=== PATIENT | female | born 2000 | race Two or more races ===

== ENCOUNTER 2020-05-12 23:58 | Inpatient (IN) | payer OTHER ==
[~2020-05-12] VITALS: Ht 157.5 cm; Wt 58.8 kg
[2020-05-13] MEDS ORDERED: IV NORMAL SALINE 1000ML BAG 1,000 ML IV ONE ×2 (00:30→02:00)
[2020-05-13] MEDS ORDERED: METOCLOPRAMIDE HCL 10 MG/2 ML VIAL. IVP ONE (00:30)
[2020-05-13] MEDS ORDERED: KETOROLAC 15 MG/ML VIAL. IVP ONE (00:30)
[2020-05-13 00:35] LABS: BILIRUBIN,URINE NEGATIVE (NEG); CLARITY,URINE CLEAR; COLOR,URINE YELLOW; NITRITE,URINE NEGATIVE (NEG); PROTEIN,URINE NEGATIVE (NEG-TRACE)
[2020-05-13 00:43] LABS: BACTERIA,URINE FEW /HPF (0-FEW); SQUAMOUS EPITHELIAL CELL,UR FEW /LPF
[2020-05-13 00:43] LABS: BASO % 0 % (0-3); EOS % 0 % (0-3); HEMATOCRIT 38.8 % (36.0-47.0); HEMOGLOBIN 13.5 g/dL (12.0-15.5); LYMPH # 1.8 x10^3/uL (1.0-4.8); LYMPH % 11 % (24-48); MEAN CORPUSCULAR HEMOGLOBIN 31 pg (25-35); MEAN CORPUSCULAR HGB CONC 35 g/dL (31-37); MEAN CORPUSCULAR VOLUME 89 fL (79-100); MONO % 6 % (0-9); NEUT # 13.2 x10^3/uL (1.8-7.7); NEUT % 82 % (31-73); PLATELET COUNT 216 x10^3/uL (140-400); RED BLOOD COUNT 4.39 x10^6/uL (3.50-5.40)
[2020-05-13 00:51] LABS: CALCIUM 8.6 mg/dL (8.5-10.1); CREATININE 0.8 mg/dL (0.6-1.0); GFR 92.4; POTASSIUM 3.4 mmol/L (3.5-5.1)
[2020-05-13 00:57] LABS: ALBUMIN 3.8 g/dL (3.4-5.0); MAGNESIUM 1.8 mg/dL (1.8-2.4); TOTAL BILIRUBIN 0.9 mg/dL (0.2-1.0); TOTAL PROTEIN 7.6 g/dL (6.4-8.2)
--- NOTE | 2020-05-13 01:22 | RAD ---
EXAM: CT Abdomen and Pelvis without IV contrast INDICATION: Reason: right flank pain, eval for ureteral calculi / Spl. Instructions: / History: TECHNIQUE: Multi-detector row CT images were acquired from the lung bases through the abdomen and pelvis without the use of IV contrast. Sagittal and coronal images were acquired from the transaxial data. All CT scans performed at this facility utilize dose optimization techniques as appropriate to the exam, including the following: Automated exposure control and adjustment of the mA and/or KV according to patient size (this includes techniques or standardized protocols for targeted exams where dose is indication/reason for exam). ORAL CONTRAST: None COMPARISON: None FINDINGS: The absence of IV contrast limits evaluation of soft tissue pathology. LOWER CHEST: Unremarkable LIVER: Unremarkable BILIARY SYSTEM: Gallbladder is unremarkable. Bile ducts are not dilated. PANCREAS: Unremarkable SPLEEN: Unremarkable ADRENALS: Unremarkable KIDNEYS & URETERS: Unremarkable BLADDER: Unremarkable REPRODUCTIVE ORGANS: Unremarkable GASTROINTESTINAL: The stomach, small bowel, and colon are unremarkable. The appendix is not well seen and there is soft tissue stranding and fluid-like density at the cecal base, some of which appears to track up the right gonadal vein. MESENTERY/PERITONEUM/RETROPERITONEUM: Unremarkable VASCULAR: Unremarkable LYMPH NODES: No adenopathy OSSEOUS & SOFT TISSUES: Unremarkable IMPRESSION: Right lower quadrant abdominal fluid and stranding in the expected location of the appendix, with poorly visualized appendix. Findings could reflect acute appendicitis in the appropriate clinical context. Differential diagnosis includes a ruptured ovarian cyst, terminal ileitis, or typhlitis. Correlate clinically. Discussed with Dr. Dobbins by telephone at 1:17 am on 05/13/20 Electronically signed by: Jennifer Veras MD (05/13/2020 1:19 AM) [facility] [place]
[2020-05-13 01:26] LABS: % BANDS 1 % (0-9); % LYMPHS 11 % (24-48); % MONOS 5 % (0-10); % SEGS 83 % (35-66); PLT ESTIMATE ADEQUATE (ADEQUATE)
[2020-05-13] MEDS ORDERED: PIPERACILLIN/TAZOBACTAM 3.375 GM in IV NORMAL SALINE 50ML 50 ML IV ONE (02:00)
[2020-05-13] MEDS ORDERED: ONDANSETRON PF 4 MG/2 ML VIAL. IV PRN (03:15)
--- NOTE | 2020-05-13 03:25 | PHYS DOC ---
Past Medical History Past Medical History: No Pertinent History Past Surgical History: Other Additional Past Surgical Histo: CYST REMOVED FROM LEFT EAR Smoking Status: Never Smoker Alcohol Use: None Drug Use: None General Adult EDM: Chief Complaint: ABDOMINAL PAIN HPI: HPI: Patient is a 19 year old female presents with sudden right lower quadrant abdominal pain with associated nausea and vomiting that started upon waking at 0400 yesterday morning (05/12/20). Denies known sick contacts. Denies trauma. Denies fever or chills. Reports some radiation to her right flank. Reports pain worse while driving over bumps on the way to the hospital today. Reports has not been able to eat due to the pain and nausea. Denies vaginal bleeding or discharge. Denies . Review of Systems: Review of Systems: Constitutional: Denies fever or chills; reports malaise Eyes: Denies redness or eye pain HENT: Denies nasal congestion or sore throat Respiratory: Denies cough or shortness of breath Cardiovascular: Denies chest pain or palpitations GI: Reports right lower quadrant abdominal pain, nausea, and vomiting : Denies dysuria; reports hematuria Musculoskeletal: Reports right back pain; denies joint pain Integument: Denies rash or skin lesions Neurologic: Denies headache, focal weakness or sensory changes Complete systems were reviewed and found to be within normal limits, except as documented in this note. Current Medications: Current Medications Medications (Trade) Dose Ordered Sig/[facility] Start Time Stop Time Status Last Admin Dose Admin Ketorolac Tromethamine (Toradol 15mg Vial) 15 mg 1X ONCE 05/13/20 00:30 05/13/20 00:31 DC 05/13/20 00:49 15 MG Metoclopramide HCl (Reglan Vial) 10 mg 1X ONCE 05/13/20 00:30 05/13/20 00:31 DC 05/13/20 00:49 10 MG Piperacillin Sod/ Tazobactam Sod 3.375 gm/Sodium Chloride 50 ml @ 100 mls/hr 1X ONCE 05/13/20 02:00 05/13/20 02:29 DC 05/13/20 02:33 100 MLS/HR Sodium Chloride 1,000 ml @ 1,000 mls/hr 1X ONCE 05/13/20 02:00 05/13/20 02:59 DC Allergies: Allergies: Allergies Coded Allergies Type Severity Reaction Last Updated Verified No Known Drug Allergies 05/13/20 No Physical Exam: PE: Constitutional: Well developed, well nourished, no acute distress, non-toxic appearance HENT: Normocephalic, atraumatic Eyes: Conjunctiva normal, no discharge Neck: Normal range of motion, no tenderness, supple Lungs & Thorax: No respiratory distress, equal chest rise and fall Abdomen: Soft, right lower quadrant tenderness, mild guarding, no rebound tenderness/distention, no psoas sign Skin: Warm, dry, no erythema, no rash Back: No tenderness, right CVA tenderness Extremities: No tenderness, ROM intact, no edema Neurologic: Alert and oriented X 3, no focal deficits noted Psychologic: Affect normal, judgment normal Current Patient Data: Labs: Laboratory Tests Test 05/13/20 00:20 05/13/20 00:30 05/13/20 00:34 Urine Collection Type Unknown Urine Color Yellow Urine Clarity Clear Urine pH 7.0 (<5.0-8.0) Urine Specific [place] 1.020 (1.000-1.030) Urine Protein Negative mg/dL (NEG-TRACE) Urine Glucose (UA) Negative mg/dL (NEG) Urine Ketones (Stick) >=80 mg/dL (NEG) Urine Blood Moderate (NEG) Urine Nitrite Negative (NEG) Urine Bilirubin Negative (NEG) Urine Urobilinogen Dipstick 2.0 mg/dL (0.2 mg/dL) Urine Leukocyte Esterase Negative (NEG) Urine RBC 3-5 /HPF (0-2) Urine WBC 1-4 /HPF (0-4) Urine Squamous Epithelial Cells Few /LPF Urine Bacteria Few /HPF (0-FEW) Urine Mucus Mod /LPF POC Urine HCG, Qualitative Hcg negative (Negative) White Blood Count 16.0 x10^3/uL (4.0-11.0) H Red Blood Count 4.39 x10^6/uL (3.50-5.40) Hemoglobin 13.5 g/dL (12.0-15.5) Hematocrit 38.8 % (36.0-47.0) Mean Corpuscular Volume 89 fL (79-100) Mean Corpuscular Hemoglobin 31 pg (25-35) Mean Corpuscular Hemoglobin Concent 35 g/dL (31-37) Red Cell Distribution Width 13.0 % (11.5-14.5) Platelet Count 216 x10^3/uL (140-400) Neutrophils (%) (Auto) 82 % (31-73) H Lymphocytes (%) (Auto) 11 % (24-48) L Monocytes (%) (Auto) 6 % (0-9) Eosinophils (%) (Auto) 0 % (0-3) Basophils (%) (Auto) 0 % (0-3) Neutrophils # (Auto) 13.2 x10^3/uL (1.8-7.7) H Lymphocytes # (Auto) 1.8 x10^3/uL (1.0-4.8) Monocytes # (Auto) 1.0 x10^3/uL (0.0-1.1) Eosinophils # (Auto) 0.0 x10^3/uL (0.0-0.7) Basophils # (Auto) 0.0 x10^3/uL (0.0-0.2) Segmented Neutrophils % 83 % (35-66) H Band Neutrophils % 1 % (0-9) Lymphocytes % 11 % (24-48) L Monocytes % 5 % (0-10) Platelet Estimate Adequate (ADEQUATE) Sodium Level 136 mmol/L (136-145) Potassium Level 3.4 mmol/L (3.5-5.1) L Chloride Level 100 mmol/L (98-107) Carbon Dioxide Level 25 mmol/L (21-32) Anion Gap 11 (6-14) Blood Urea Nitrogen 9 mg/dL (7-20) Creatinine 0.8 mg/dL (0.6-1.0) Estimated GFR (Cockcroft-Gault) 92.4 BUN/Creatinine Ratio 11 (6-20) Glucose Level 107 mg/dL (70-99) H Lactic Acid Level 0.9 mmol/L (0.4-2.0) Calcium Level 8.6 mg/dL (8.5-10.1) Magnesium Level 1.8 mg/dL (1.8-2.4) Total Bilirubin 0.9 mg/dL (0.2-1.0) Aspartate Amino Transferase (AST) 11 U/L (15-37) L Alanine Aminotransferase (ALT) 18 U/L (14-59) Alkaline Phosphatase 92 U/L (46-116) Total Protein 7.6 g/dL (6.4-8.2) Albumin 3.8 g/dL (3.4-5.0) Albumin/Globulin Ratio 1.0 (1.0-1.7) Lipase 41 U/L (73-393) L Laboratory Tests 05/13/20 00:34 Laboratory Tests 05/13/20 00:34 Vital Signs: Vital Signs Date Time Temp Pulse Resp B/P (MAP) Pulse Ox O2 Delivery O2 Flow Rate FiO2 05/13/20 00:09 98.6 109 20 111/67 (82) 97 Room Air 98.6 EKG: EKG: [] Radiology/Procedures: Radiology/Procedures: PROCEDURE: CT ABDOMEN PELVIS WO CONTRAST EXAM: CT Abdomen and Pelvis without IV contrast INDICATION: Reason: right flank pain, eval for ureteral calculi / Spl. Instructions: / History: TECHNIQUE: Multi-detector row CT images were acquired from the lung bases through the abdomen and pelvis without the use of IV contrast. Sagittal and coronal images were acquired from the transaxial data. All CT scans performed at this facility utilize dose optimization techniques as appropriate to the exam, including the following: Automated exposure control and adjustment of the mA and/or KV according to patient size (this includes techniques or standardized protocols for targeted exams where dose is indication/reason for exam). ORAL CONTRAST: None COMPARISON: None FINDINGS: The absence of IV contrast limits evaluation of soft tissue pathology. LOWER CHEST: Unremarkable LIVER: Unremarkable BILIARY SYSTEM: Gallbladder is unremarkable. Bile ducts are not dilated. PANCREAS: Unremarkable SPLEEN: Unremarkable ADRENALS: Unremarkable KIDNEYS & URETERS: Unremarkable BLADDER: Unremarkable REPRODUCTIVE ORGANS: Unremarkable GASTROINTESTINAL: The stomach, small bowel, and colon are unremarkable. The appendix is not well seen and there is soft tissue stranding and fluid-like density at the cecal base, some of which appears to track up the right gonadal vein. MESENTERY/PERITONEUM/RETROPERITONEUM: Unremarkable VASCULAR: Unremarkable LYMPH NODES: No adenopathy OSSEOUS & SOFT TISSUES: Unremarkable IMPRESSION: Right lower quadrant abdominal fluid and stranding in the expected location of the appendix, with poorly visualized appendix. Findings could reflect acute appendicitis in the appropriate clinical context. Differential diagnosis includes a ruptured ovarian cyst, terminal ileitis, or typhlitis. Correlate clinically. Discussed with Dr. Faustin by telephone at 1:17 am on 05/13/20 Electronically signed by: Jennifer Veras MD (05/13/2020 1:19 AM) [facility] [place] PROCEDURE: PELVIS COMPLETE Pelvic ultrasound INDICATION: RLQ pain . Reported negative HCG. LMP 05/04/20 TECHNIQUE: Endovaginal pelvic ultrasound performed with grayscale, color and spectral doppler ultrasound. FINDINGS: Uterus measures 6.6 x 3.9 x 3.2 cm Endometrium measures 5 mm Right ovary measures 3.0 x 1.9 x 1.8 cm and shows normal blood flow Left ovary measures 2.3 x 2.0 x 1.9 cm and shows normal blood flow. Small amount of free fluid. Tubular structure arising from cecum measures 1.4 cm and could reflect a thickened appendix. IMPRESSION: No ovarian torsion. Possible appendicitis. Electronically signed by: Jennifer Veras MD (05/13/2020 3:33 AM) [facility] [place] Course & Med Decision Making: Course & Med Decision Making Pertinent Labs and Imaging studies reviewed. (See chart for details) Patient presents with right lower quadrant abdominal pain with radiation to back and associated nausea and vomiting. Afebrile. Denies vaginal bleeding or discharge. Denies rash. Reports some hematuria. Concern for possible ureteral calculi. Symptomatic treatment provided. IV fluid hydration provided. Labs obtained and posted to chart. WBC elevated. Lactic acid within normal limits. CT abdomen/pelvis with concern for possible appendicitis. Cannot fully exclude ovarian issue. Pelvic ultrasound without acute process. Empiric antibiotic initiated. Rapid COVID test pending. Patient requiring admission for further evaluation and treatment. Discussed with Dr. Gutierrez (General Surgery) who is in agreement with admission. Discussed findings and plan with patient and family, who acknowledge understanding and agreement. Eagle Disclaimer: Eagle Disclaimer: This electronic medical record was generated, in whole or in part, using a voice recognition dictation system. Departure Departure Impression: Primary Impression: Acute appendicitis Qualified Codes: K35.80 - Unspecified acute appendicitis Disposition: ADMITTED INPATIENT (Dr. Gutierrez (general surgery)) Condition: STABLE Referrals: NO PCP (PCP) Justicifation of Admission Dx: Justifications for Admission: Justification of Admission Dx: Yes Comments: Acute appendicitis Critical Care Time Critical care time was 30 minutes which includes time at bedside, spent in discussion of patient's care with specialists and/or family members, with interpretation of laboratory and/or radiological studies and is exclusive of procedures. SAMANTHA FAUSTIN DO May 13, 2020 03:25
--- NOTE | 2020-05-13 03:35 | RAD ---
Pelvic ultrasound INDICATION: RLQ pain . Reported negative HCG. LMP 05/04/20 TECHNIQUE: Endovaginal pelvic ultrasound performed with grayscale, color and spectral doppler ultrasound. FINDINGS: Uterus measures 6.6 x 3.9 x 3.2 cm Endometrium measures 5 mm Right ovary measures 3.0 x 1.9 x 1.8 cm and shows normal blood flow Left ovary measures 2.3 x 2.0 x 1.9 cm and shows normal blood flow. Small amount of free fluid. Tubular structure arising from cecum measures 1.4 cm and could reflect a thickened appendix. IMPRESSION: No ovarian torsion. Possible appendicitis. Electronically signed by: Jennifer Veras MD (05/13/2020 3:33 AM) [facility] [place]
[2020-05-13] MEDS ORDERED: PIP/TAZO PER PHARMACY MC PRN (04:00)
[2020-05-13 04:10] VITALS: BP 122/57
--- NOTE | 2020-05-13 04:10 | NUR ---
Patient arrived on unit at 0410 by wheelchair from ER. Patient is alert and oriented, on room air and walks ad dar. Pt. does not complain of any pain or nausea at this time. Will continue to monitor.
[2020-05-13] MEDS: IV NORMAL SALINE 1000ML BAG 1,000 ML IV SCH ×3 (04:18→18:28)
[2020-05-13] MEDS: PIPERACILLIN/TAZOBACTAM 3.375 GM in IV NORMAL SALINE 50ML 50 ML IV SCH ×3 (06:17→18:28)
[2020-05-13 07:37] VITALS: BP 101/55
[2020-05-13] MEDS ORDERED: IV RINGERS,LACTATED 1000ML 1,000 ML IV SCH (10:05)
[2020-05-13] MEDS ORDERED: PROCHLORPERAZINE 10 MG/2 ML VIAL. IV PRN (10:15)
[2020-05-13 11:02] VITALS: BP 115/62
--- NOTE | 2020-05-13 11:12 | NUR ---
SW following. Discussed with RN, pt from home, scheduled for surgery today. Med Assist following for self pay status. RN advised no SW needs at this time. SW will continue to follow, should any discharge needs arise.
--- NOTE | 2020-05-13 11:38 | PDOC1 ---
CLAUDIA GUEVARA CONDUCTOR/ENGINEER 05/13/20 1138: History and Physical Date of Admission Date of Admission DATE: 05/13/20 TIME: 11:34 / Date of service/dictation -05/13/20-1135 Identification/Chief Complaint Chief Complaint abdominal pain Source Source: Chart review, Patient History of Present Illness History of Present Illness Started having pain to lower abdomen wed evening after going to gym. Thought was cramps, however pain continued to be increasingly worse yesterday, did not improve. Associated nausea, pressure feeling in bladder. No similar symptoms in past Past Medical History Past Medical History no pertinent hx Past Surgical History Past Surgical History: No pertinent history Family History Family History: Other (noncontributory to current illness ) Social History Smoke: No ALCOHOL: none Drugs: None Current Problem List Problem List Problems Medical Problems: (1) Acute appendicitis Status: Acute Current Medications Current Medications Current Medications Ketorolac Tromethamine (Toradol 15mg Vial) 15 mg 1X ONCE IVP Last administered on 05/13/20at 00:49; Start 05/13/20 at 00:30; Stop 05/13/20 at 00:31; Status DC Metoclopramide HCl (Reglan Vial) 10 mg 1X ONCE IVP Last administered on 05/13/20at 00:49; Start 05/13/20 at 00:30; Stop 05/13/20 at 00:31; Status DC Sodium Chloride 1,000 ml @ 1,000 mls/hr 1X ONCE IV Last administered on 05/13/20at 00:49; Start 05/13/20 at 00:30; Stop 05/13/20 at 01:29; Status DC Piperacillin Sod/ Tazobactam Sod 3.375 gm/Sodium Chloride 50 ml @ 100 mls/hr 1X ONCE IV Last administered on 05/13/20at 02:33; Start 05/13/20 at 02:00; Stop 05/13/20 at 02:29; Status DC Sodium Chloride 1,000 ml @ 1,000 mls/hr 1X ONCE IV Last administered on 05/13/20at 02:00; Start 05/13/20 at 02:00; Stop 05/13/20 at 02:59; Status DC Ondansetron HCl (Zofran) 4 mg PRN Q8HRS PRN IV NAUSEA/VOMITING; Start 05/13/20 at 03:15; Stop 05/14/20 at 03:14 Fentanyl Citrate (Fentanyl 2ml Vial) 25 mcg PRN Q2HR PRN IV PAIN; Start 05/13/20 at 03:15 Sodium Chloride 1,000 ml @ 100 mls/hr Q10H IV Last administered on 05/13/20at 04:18; Start 05/13/20 at 03:15; Stop 05/14/20 at 03:14 Piperacillin Sod/ Tazobactam Sod (Zosyn Per Pharmacy) 1 each PRN DAILY PRN MC SEE COMMENTS; Start 05/13/20 at 04:00 Piperacillin Sod/ Tazobactam Sod 3.375 gm/Sodium Chloride 50 ml @ 100 mls/hr Q6HRS IV Last administered on 05/13/20at 06:17; Start 05/13/20 at 06:00 Ringer's Solution 1,000 ml @ 30 mls/hr Q24H IV ; Start 05/13/20 at 10:05; Stop 05/13/20 at 22:04 Prochlorperazine Edisylate (Compazine) 5 mg PACU PRN PRN IV NAUSEA, MRX1; Start 05/13/20 at 10:15; Stop 05/14/20 at 10:14 Active Scripts Active Reported No Known Medications Prior To Admisstion (Info) Each 1 Each MC 1X Allergies Allergies: Coded Allergies: No Known Drug Allergies (Unverified , 05/13/20) ROS General: YES: Chills; No: Other (fevers ) PSYCHOLOGICAL ROS: No: Anxiety, Depression Eyes: No Blurry vision, No Double vision Hematological and Lymphatic: No: Bleeding Problems, Blood Clots Respiratory: No: Cough, Shortness of breath Cardiovascular: No Chest Pain, No Palpitations Gastrointestinal: Yes Other (see hpi) Genitourinary: YES Dysuria, YES Hematuria Musculoskeletal: No Gait Disturbance, No Joint Pain Neurological: No Confusion, No Impaired Coord/balance Skin: No Mole Changes, No Nail Changes Physical Exam General: Alert, Oriented X3, Cooperative HEENT: Atraumatic, PERRLA Lungs: Clear to auscultation, Normal air movement Heart: S1S2, no murmurs Abdomen: Soft, Other (TTP RLQ, no guarding or rebound ) Extremities: No clubbing, No cyanosis Skin: No rashes, No breakdown Neuro: Normal gait, Normal speech Psych/Mental Status: Mental status NL, Mood NL Vitals Vitals Vital Signs Date Time Temp Pulse Resp B/P (MAP) Pulse Ox O2 Delivery O2 Flow Rate FiO2 05/13/20 11:02 98.1 87 18 115/62 (79) 97 Room Air 98.1 Labs Labs Laboratory Tests Test 05/13/20 00:20 05/13/20 00:30 05/13/20 00:34 05/13/20 03:22 Urine Collection Type Unknown Urine Color Yellow Urine Clarity Clear Urine pH 7.0 (<5.0-8.0) Urine Specific [place] 1.020 (1.000-1.030) Urine Protein Negative mg/dL (NEG-TRACE) Urine Glucose (UA) Negative mg/dL (NEG) Urine Ketones (Stick) >=80 mg/dL (NEG) Urine Blood Moderate (NEG) Urine Nitrite Negative (NEG) Urine Bilirubin Negative (NEG) Urine Urobilinogen Dipstick 2.0 mg/dL (0.2 mg/dL) Urine Leukocyte Esterase Negative (NEG) Urine RBC 3-5 /HPF (0-2) Urine WBC 1-4 /HPF (0-4) Urine Squamous Epithelial Cells Few /LPF Urine Bacteria Few /HPF (0-FEW) Urine Mucus Mod /LPF Bedside Urine HCG, Qualitative Hcg negative (Negative) White Blood Count 16.0 x10^3/uL (4.0-11.0) Red Blood Count 4.39 x10^6/uL (3.50-5.40) Hemoglobin 13.5 g/dL (12.0-15.5) Hematocrit 38.8 % (36.0-47.0) Mean Corpuscular Volume 89 fL (79-100) Mean Corpuscular Hemoglobin 31 pg (25-35) Mean Corpuscular Hemoglobin Concent 35 g/dL (31-37) Red Cell Distribution Width 13.0 % (11.5-14.5) Platelet Count 216 x10^3/uL (140-400) Neutrophils (%) (Auto) 82 % (31-73) Lymphocytes (%) (Auto) 11 % (24-48) Monocytes (%) (Auto) 6 % (0-9) Eosinophils (%) (Auto) 0 % (0-3) Basophils (%) (Auto) 0 % (0-3) Neutrophils # (Auto) 13.2 x10^3/uL (1.8-7.7) Lymphocytes # (Auto) 1.8 x10^3/uL (1.0-4.8) Monocytes # (Auto) 1.0 x10^3/uL (0.0-1.1) Eosinophils # (Auto) 0.0 x10^3/uL (0.0-0.7) Basophils # (Auto) 0.0 x10^3/uL (0.0-0.2) Segmented Neutrophils % 83 % (35-66) Band Neutrophils % 1 % (0-9) Lymphocytes % 11 % (24-48) Monocytes % 5 % (0-10) Platelet Estimate Adequate (ADEQUATE) Sodium Level 136 mmol/L (136-145) Potassium Level 3.4 mmol/L (3.5-5.1) Chloride Level 100 mmol/L (98-107) Carbon Dioxide Level 25 mmol/L (21-32) Anion Gap 11 (6-14) Blood Urea Nitrogen 9 mg/dL (7-20) Creatinine 0.8 mg/dL (0.6-1.0) Estimated GFR (Cockcroft-Gault) 92.4 BUN/Creatinine Ratio 11 (6-20) Glucose Level 107 mg/dL (70-99) Lactic Acid Level 0.9 mmol/L (0.4-2.0) Calcium Level 8.6 mg/dL (8.5-10.1) Magnesium Level 1.8 mg/dL (1.8-2.4) Total Bilirubin 0.9 mg/dL (0.2-1.0) Aspartate Amino Transf (AST/SGOT) 11 U/L (15-37) Alanine Aminotransferase (ALT/SGPT) 18 U/L (14-59) Alkaline Phosphatase 92 U/L (46-116) Total Protein 7.6 g/dL (6.4-8.2) Albumin 3.8 g/dL (3.4-5.0) Albumin/Globulin Ratio 1.0 (1.0-1.7) Lipase 41 U/L (73-393) SARS-CoV-2 Antigen (Rapid) Negative (NEGATIVE) Laboratory Tests Test 05/13/20 00:20 05/13/20 00:30 05/13/20 00:34 05/13/20 03:22 Urine Collection Type Unknown Urine Color Yellow Urine Clarity Clear Urine pH 7.0 (<5.0-8.0) Urine Specific [place] 1.020 (1.000-1.030) Urine Protein Negative mg/dL (NEG-TRACE) Urine Glucose (UA) Negative mg/dL (NEG) Urine Ketones (Stick) >=80 mg/dL (NEG) Urine Blood Moderate (NEG) Urine Nitrite Negative (NEG) Urine Bilirubin Negative (NEG) Urine Urobilinogen Dipstick 2.0 mg/dL (0.2 mg/dL) Urine Leukocyte Esterase Negative (NEG) Urine RBC 3-5 /HPF (0-2) Urine WBC 1-4 /HPF (0-4) Urine Squamous Epithelial Cells Few /LPF Urine Bacteria Few /HPF (0-FEW) Urine Mucus Mod /LPF Bedside Urine HCG, Qualitative Hcg negative (Negative) White Blood Count 16.0 x10^3/uL (4.0-11.0) Red Blood Count 4.39 x10^6/uL (3.50-5.40) Hemoglobin 13.5 g/dL (12.0-15.5) Hematocrit 38.8 % (36.0-47.0) Mean Corpuscular Volume 89 fL (79-100) Mean Corpuscular Hemoglobin 31 pg (25-35) Mean Corpuscular Hemoglobin Concent 35 g/dL (31-37) Red Cell Distribution Width 13.0 % (11.5-14.5) Platelet Count 216 x10^3/uL (140-400) Neutrophils (%) (Auto) 82 % (31-73) Lymphocytes (%) (Auto) 11 % (24-48) Monocytes (%) (Auto) 6 % (0-9) Eosinophils (%) (Auto) 0 % (0-3) Basophils (%) (Auto) 0 % (0-3) Neutrophils # (Auto) 13.2 x10^3/uL (1.8-7.7) Lymphocytes # (Auto) 1.8 x10^3/uL (1.0-4.8) Monocytes # (Auto) 1.0 x10^3/uL (0.0-1.1) Eosinophils # (Auto) 0.0 x10^3/uL (0.0-0.7) Basophils # (Auto) 0.0 x10^3/uL (0.0-0.2) Segmented Neutrophils % 83 % (35-66) Band Neutrophils % 1 % (0-9) Lymphocytes % 11 % (24-48) Monocytes % 5 % (0-10) Platelet Estimate Adequate (ADEQUATE) Sodium Level 136 mmol/L (136-145) Potassium Level 3.4 mmol/L (3.5-5.1) Chloride Level 100 mmol/L (98-107) Carbon Dioxide Level 25 mmol/L (21-32) Anion Gap 11 (6-14) Blood Urea Nitrogen 9 mg/dL (7-20) Creatinine 0.8 mg/dL (0.6-1.0) Estimated GFR (Cockcroft-Gault) 92.4 BUN/Creatinine Ratio 11 (6-20) Glucose Level 107 mg/dL (70-99) Lactic Acid Level 0.9 mmol/L (0.4-2.0) Calcium Level 8.6 mg/dL (8.5-10.1) Magnesium Level 1.8 mg/dL (1.8-2.4) Total Bilirubin 0.9 mg/dL (0.2-1.0) Aspartate Amino Transf (AST/SGOT) 11 U/L (15-37) Alanine Aminotransferase (ALT/SGPT) 18 U/L (14-59) Alkaline Phosphatase 92 U/L (46-116) Total Protein 7.6 g/dL (6.4-8.2) Albumin 3.8 g/dL (3.4-5.0) Albumin/Globulin Ratio 1.0 (1.0-1.7) Lipase 41 U/L (73-393) SARS-CoV-2 Antigen (Rapid) Negative (NEGATIVE) VTE Prophylaxis Ordered VTE Prophylaxis Devices: No VTE Pharmacological Prophylaxi: Contraindicated Assessment/Plan Assessment/Plan acute appendicitis plan lap appy today Justicifation of Admission Dx: Justifications for Admission: Justification of Admission Dx: Yes SIDNEY GUTHRIE MD 05/13/20 1232: History and Physical Allergies Allergies: Coded Allergies: No Known Drug Allergies (Unverified , 05/13/20) Assessment/Plan Assessment/Plan Patient seen and examined by me, complains of right lower quadrant abdominal pain no nausea or vomiting. CT scan showing signs consistent with acute appendicitis without abscess. Plan laparoscopic appendectomy today. Agree with [facility] assessment and plan Justicifation of Admission Dx: Justifications for Admission: Justification of Admission Dx: Yes Comments: Acute appendicitis CLAUDIA GUEVARA APRN May 13, 2020 11:38 SIDNEY GUTHRIE MD May 13, 2020 12:32
[2020-05-13] MEDS ORDERED: BUPIVACAINE-EPI 0.25%-1:200000 MPF 30 ML VIAL. ONE (11:52)
[2020-05-13] MEDS ORDERED: SURGICEL HEMOSTAT 4X8 EACH. ONE (11:52)
[2020-05-13] MEDS ORDERED: ONDANSETRON PF 4 MG/2 ML VIAL. ONE (11:58)
[2020-05-13] MEDS ORDERED: PROPOFOL 10 MG/ML (20ML) VIAL. IV ONE (11:58)
[2020-05-13] MEDS ORDERED: fentaNYL PF VIAL 100 MCG/2 ML VIAL ONE ×2 (11:58→13:19)
[2020-05-13] MEDS ORDERED: DEXAMETHASONE SOD PHOS 4 MG/ML VIAL ONE (11:58)
[2020-05-13] MEDS ORDERED: SUCCINYLCHOLINE 200 MG/10 ML VIAL. ONE (11:58)
[2020-05-13] MEDS ORDERED: MIDAZOLAM HCL/PF 2 MG/2 ML VIAL. ONE (11:58)
[2020-05-13] MEDS ORDERED: LIDOCAINE 2% PF 5 ML VIAL. ONE (11:58)
[2020-05-13] MEDS ORDERED: ROCURONIUM 50 MG/5 ML VIAL. ONE (11:58)
[2020-05-13] MEDS ORDERED: FAMOTIDINE 20 MG/2 ML VIAL ONE (12:33)
[2020-05-13] MEDS ORDERED: KETOROLAC 30 MG/ML VIAL. ONE (12:59)
[2020-05-13] MEDS ORDERED: GLYCOPYRROLATE 1 MG/5 ML VIAL. ONE (12:59)
[2020-05-13] MEDS ORDERED: NEOSTIGMINE METHYLSULFATE 5 MG/5 ML SYRINGE. ONE (12:59)
[2020-05-13] MEDS ORDERED: SEVOFLURANE 31 TO 60 MINUTES. IH ONE (13:00)
--- NOTE | 2020-05-13 13:15 | PDOC4 ---
Operative Note Operative Note Date: May 13, 2020 at 1312 Preoperative diagnosis: Acute appendicitis Postoperative diagnosis: Same Procedure: Laparoscopic appendectomy Surgeon: Matt Specimen: Appendix Dictation: Patient is a 19-year-old female admitted to the hospital with right lower quadrant abdominal pain and a CT scan showing signs consistent with acute appendicitis. Procedure of laparoscopic appendectomy was explained to the patient detail was benefits were also discussed including bleeding infection injury to intra-abdominal contents possibly necessitating further or open operations alternatives to this procedure also discussed with the patient who seemed to understand and gave both verbal and written consent to have the procedure performed. Patient was taken to the operating room placed in the supine position general anesthesia was initiated once patient was sleeping intubated her abdomen was prepped and draped usual sterile fashion using ChloraPrep. An area just below the umbilicus was injected quarter percent Marcaine with epinephrine incision was made 11 blade scalpel and a varies needle was placed within the abdomen creating pneumoperitoneum once this complete 12 mm port was placed and a 5 mm camera was placed within the abdomen which was inspected no other red maladies were noted other than a dilated and inflamed appendix. A 5 mm port was placed low in the midline below the umbilicus and a 5 mm port was placed in the right midabdomen. The appendix was grasped retracted towards the anterior abdominal wall was freed up from its attachments laterally a window was propagated the mesoappendix at the base the appendix and an Endo CONNIE stapler was used to staple and transect the base of the appendix a second load was used to staple and transect the mesoappendix the appendix then placed in Endo Catch bag removed and the umbilicus right lower quadrant pelvis were irrigated and suctioned dry hemostasis deemed be appropriate the pneumoperitoneum was reduced all ports were removed the fascial defect at the umbilicus was closed with a dysxhi-de-xufdi 0 Vicryl suture and the skin was reapproximated all port sites for subcuticular Monocryl Mastisol Steri-Strips and island dressings were applied. Patient was awakened and extubated in the operating room taken to recovery in stable condition all sponge instrument needle counts listed as correct estimated blood loss 20 mL SIDNEY GUTHRIE MD May 13, 2020 13:14
[2020-05-13] MEDS: KETOROLAC 15 MG/ML VIAL. IVP SCH ×2 (14:00→18:27)
[2020-05-13 14:36] VITALS: BP 104/57
[2020-05-13] MEDS: fentaNYL PF VIAL 100 MCG/2 ML VIAL IV PRN ×2 (14:39→20:55)
[2020-05-13 19:00] VITALS: BP 98/58
[2020-05-13] MEDS: LACTOBACILLUS RHAMNOSUS GG 1 CAPSULE. PO SCH (20:56)
[2020-05-13 23:00] VITALS: BP 117/60
[2020-05-14] MEDS: KETOROLAC 15 MG/ML VIAL. IVP SCH ×3 (00:11→12:04)
[2020-05-14] MEDS: PIPERACILLIN/TAZOBACTAM 3.375 GM in IV NORMAL SALINE 50ML 50 ML IV SCH ×3 (00:12→12:00)
[2020-05-14] MEDS: oxyCODONE/APAP 5/325 1 TAB TABLET PO PRN ×3 (02:59→12:05)
[2020-05-14 03:04] VITALS: BP 116/48
[2020-05-14 07:00] VITALS: BP 99/43
[2020-05-14] MEDS: LACTOBACILLUS RHAMNOSUS GG 1 CAPSULE. PO SCH (08:44)
--- NOTE | 2020-05-14 09:15 | PDOC ---
SURGICAL PROGRESS NOTE Subjective Patient doing well tolerating diet minimal pain Vital Signs Vital Signs Date Time Temp Pulse Resp B/P (MAP) Pulse Ox O2 Delivery O2 Flow Rate FiO2 05/14/20 08:43 20 Room Air 05/14/20 07:00 98.1 62 99/43 (61) 97 98.1 05/13/20 16:57 10.0 I&O Intake and Output 05/14/20 07:00 Intake Total 2200 ml Balance 2200 ml Intake Oral 750 ml IV Total 1450 ml # Voids 2 PATIENT HAS A MONTGOMERY: No General: Alert, Oriented X3, Cooperative, mild distress Abdomen: Normal bowel sounds, Soft, Other (Mild incisional tenderness wounds clean dry and intact) Labs Laboratory Tests Test 05/13/20 00:20 05/13/20 00:30 05/13/20 00:34 05/13/20 03:15 Urine Collection Type Unknown Urine Color Yellow Urine Clarity Clear Urine pH 7.0 (<5.0-8.0) Urine Specific Clear 1.020 (1.000-1.030) Urine Protein Negative mg/dL (NEG-TRACE) Urine Glucose (UA) Negative mg/dL (NEG) Urine Ketones (Stick) >=80 mg/dL (NEG) Urine Blood Moderate (NEG) Urine Nitrite Negative (NEG) Urine Bilirubin Negative (NEG) Urine Urobilinogen Dipstick 2.0 mg/dL (0.2 mg/dL) Urine Leukocyte Esterase Negative (NEG) Urine RBC 3-5 /HPF (0-2) Urine WBC 1-4 /HPF (0-4) Urine Squamous Epithelial Cells Few /LPF Urine Bacteria Few /HPF (0-FEW) Urine Mucus Mod /LPF Bedside Urine HCG, Qualitative Hcg negative (Negative) White Blood Count 16.0 x10^3/uL (4.0-11.0) Red Blood Count 4.39 x10^6/uL (3.50-5.40) Hemoglobin 13.5 g/dL (12.0-15.5) Hematocrit 38.8 % (36.0-47.0) Mean Corpuscular Volume 89 fL (79-100) Mean Corpuscular Hemoglobin 31 pg (25-35) Mean Corpuscular Hemoglobin Concent 35 g/dL (31-37) Red Cell Distribution Width 13.0 % (11.5-14.5) Platelet Count 216 x10^3/uL (140-400) Neutrophils (%) (Auto) 82 % (31-73) Lymphocytes (%) (Auto) 11 % (24-48) Monocytes (%) (Auto) 6 % (0-9) Eosinophils (%) (Auto) 0 % (0-3) Basophils (%) (Auto) 0 % (0-3) Neutrophils # (Auto) 13.2 x10^3/uL (1.8-7.7) Lymphocytes # (Auto) 1.8 x10^3/uL (1.0-4.8) Monocytes # (Auto) 1.0 x10^3/uL (0.0-1.1) Eosinophils # (Auto) 0.0 x10^3/uL (0.0-0.7) Basophils # (Auto) 0.0 x10^3/uL (0.0-0.2) Segmented Neutrophils % 83 % (35-66) Band Neutrophils % 1 % (0-9) Lymphocytes % 11 % (24-48) Monocytes % 5 % (0-10) Platelet Estimate Adequate (ADEQUATE) Sodium Level 136 mmol/L (136-145) Potassium Level 3.4 mmol/L (3.5-5.1) Chloride Level 100 mmol/L (98-107) Carbon Dioxide Level 25 mmol/L (21-32) Anion Gap 11 (6-14) Blood Urea Nitrogen 9 mg/dL (7-20) Creatinine 0.8 mg/dL (0.6-1.0) Estimated GFR (Cockcroft-Gault) 92.4 BUN/Creatinine Ratio 11 (6-20) Glucose Level 107 mg/dL (70-99) Lactic Acid Level 0.9 mmol/L (0.4-2.0) Calcium Level 8.6 mg/dL (8.5-10.1) Magnesium Level 1.8 mg/dL (1.8-2.4) Total Bilirubin 0.9 mg/dL (0.2-1.0) Aspartate Amino Transf (AST/SGOT) 11 U/L (15-37) Alanine Aminotransferase (ALT/SGPT) 18 U/L (14-59) Alkaline Phosphatase 92 U/L (46-116) Total Protein 7.6 g/dL (6.4-8.2) Albumin 3.8 g/dL (3.4-5.0) Albumin/Globulin Ratio 1.0 (1.0-1.7) Lipase 41 U/L (73-393) Coronavirus (PCR) Not detected (Not Detected) Test 05/13/20 03:22 SARS-CoV-2 Antigen (Rapid) Negative (NEGATIVE) Problem List Problems Medical Problems: (1) Acute appendicitis Status: Acute Assessment/Plan Status post laparoscopic appendectomy awaiting CBC results if within normal limits will discharge home Justicifation of Admission Dx: Justifications for Admission: Justification of Admission Dx: Yes SIDNEY GUTHRIE MD May 14, 2020 09:15
[2020-05-14 09:38] LABS: BASO % 0 % (0-3); EOS % 0 % (0-3); HEMATOCRIT 32.1 % (36.0-47.0); HEMOGLOBIN 11.3 g/dL (12.0-15.5); LYMPH # 2.1 x10^3/uL (1.0-4.8); LYMPH % 19 % (24-48); MEAN CORPUSCULAR HEMOGLOBIN 31 pg (25-35); MEAN CORPUSCULAR HGB CONC 35 g/dL (31-37); MEAN CORPUSCULAR VOLUME 89 fL (79-100); MONO # 0.7 x10^3/uL (0.0-1.1); MONO % 7 % (0-9); NEUT # 8.3 x10^3/uL (1.8-7.7); NEUT % 74 % (31-73); PLATELET COUNT 205 x10^3/uL (140-400); RED BLOOD COUNT 3.62 x10^6/uL (3.50-5.40); RED CELL DISTRIBUTION WIDTH 12.7 % (11.5-14.5); WHITE BLOOD COUNT 11.3 x10^3/uL (4.0-11.0)
[2020-05-14 11:00] VITALS: BP 124/61
--- NOTE | 2020-05-14 11:39 | DISCH ---
DISCHARGE INSTRUCTIONS Condition on Discharge Condition on Discharge: Stable Activity After Discharge Activity Instructions for Disc: Activity as tolerated Other activity instructions: No lifting more than 20 pounds for 2 weeks Bathing Instructions: No Tub Bath until see Lifting Instructions after Dis: No heavy lifting, No pulling or pushing Driving Instructions after Dis: Do not drive today Weight Bearing Status after Di: As tolerated Diet after Discharge Diet after Discharge: Regular Wound Incision Care Wound/Incision Care: Ice to area for comfort, Change dressing, May get incision wet Other wound/incision instructi: May shower Wound Care Equipment: Dressings Contacting the after DC Call your doctor for: If your condition worsens Follow-Up Follow up with: Primary doctor in 2 weeks Follow Up With: Dr Guthrie in 2 weeks Treatment/Equipment after DC Adaptive Equipment Issued: None SIDNEY GUTHRIE MD May 14, 2020 11:39
--- NOTE | 2020-05-14 11:41 | PDOC3 ---
Discharge Summary Visit Information Date of Admission: May 13, 2020 Date of Discharge: May 14, 2020 Admitting Diagnosis: Acute appendicitis Final Diagnosis Problems Medical Problems: (1) Acute appendicitis Status: Acute Brief Hospital Course Allergies Allergies Coded Allergies Type Severity Reaction Last Updated Verified No Known Drug Allergies 05/13/20 No Vital Signs Vital Signs Date Time Temp Pulse Resp B/P (MAP) Pulse Ox O2 Delivery O2 Flow Rate FiO2 05/14/20 11:00 98.3 62 16 124/61 (82) 98 Room Air 98.3 05/13/20 16:57 10.0 Lab Results Laboratory Tests Test 05/13/20 00:20 05/13/20 00:30 05/13/20 00:34 05/13/20 03:15 Urine Collection Type Unknown Urine Color Yellow Urine Clarity Clear Urine pH 7.0 (<5.0-8.0) Urine Specific Johnson 1.020 (1.000-1.030) Urine Protein Negative mg/dL (NEG-TRACE) Urine Glucose (UA) Negative mg/dL (NEG) Urine Ketones (Stick) >=80 mg/dL (NEG) Urine Blood Moderate (NEG) Urine Nitrite Negative (NEG) Urine Bilirubin Negative (NEG) Urine Urobilinogen Dipstick 2.0 mg/dL (0.2 mg/dL) Urine Leukocyte Esterase Negative (NEG) Urine RBC 3-5 /HPF (0-2) Urine WBC 1-4 /HPF (0-4) Urine Squamous Epithelial Cells Few /LPF Urine Bacteria Few /HPF (0-FEW) Urine Mucus Mod /LPF Bedside Urine HCG, Qualitative Hcg negative (Negative) White Blood Count 16.0 x10^3/uL (4.0-11.0) Red Blood Count 4.39 x10^6/uL (3.50-5.40) Hemoglobin 13.5 g/dL (12.0-15.5) Hematocrit 38.8 % (36.0-47.0) Mean Corpuscular Volume 89 fL (79-100) Mean Corpuscular Hemoglobin 31 pg (25-35) Mean Corpuscular Hemoglobin Concent 35 g/dL (31-37) Red Cell Distribution Width 13.0 % (11.5-14.5) Platelet Count 216 x10^3/uL (140-400) Neutrophils (%) (Auto) 82 % (31-73) Lymphocytes (%) (Auto) 11 % (24-48) Monocytes (%) (Auto) 6 % (0-9) Eosinophils (%) (Auto) 0 % (0-3) Basophils (%) (Auto) 0 % (0-3) Neutrophils # (Auto) 13.2 x10^3/uL (1.8-7.7) Lymphocytes # (Auto) 1.8 x10^3/uL (1.0-4.8) Monocytes # (Auto) 1.0 x10^3/uL (0.0-1.1) Eosinophils # (Auto) 0.0 x10^3/uL (0.0-0.7) Basophils # (Auto) 0.0 x10^3/uL (0.0-0.2) Segmented Neutrophils % 83 % (35-66) Band Neutrophils % 1 % (0-9) Lymphocytes % 11 % (24-48) Monocytes % 5 % (0-10) Platelet Estimate Adequate (ADEQUATE) Sodium Level 136 mmol/L (136-145) Potassium Level 3.4 mmol/L (3.5-5.1) Chloride Level 100 mmol/L (98-107) Carbon Dioxide Level 25 mmol/L (21-32) Anion Gap 11 (6-14) Blood Urea Nitrogen 9 mg/dL (7-20) Creatinine 0.8 mg/dL (0.6-1.0) Estimated GFR (Cockcroft-Gault) 92.4 BUN/Creatinine Ratio 11 (6-20) Glucose Level 107 mg/dL (70-99) Lactic Acid Level 0.9 mmol/L (0.4-2.0) Calcium Level 8.6 mg/dL (8.5-10.1) Magnesium Level 1.8 mg/dL (1.8-2.4) Total Bilirubin 0.9 mg/dL (0.2-1.0) Aspartate Amino Transf (AST/SGOT) 11 U/L (15-37) Alanine Aminotransferase (ALT/SGPT) 18 U/L (14-59) Alkaline Phosphatase 92 U/L (46-116) Total Protein 7.6 g/dL (6.4-8.2) Albumin 3.8 g/dL (3.4-5.0) Albumin/Globulin Ratio 1.0 (1.0-1.7) Lipase 41 U/L (73-393) Coronavirus (PCR) Not detected (Not Detected) Test 05/13/20 03:22 05/14/20 09:24 SARS-CoV-2 Antigen (Rapid) Negative (NEGATIVE) White Blood Count 11.3 x10^3/uL (4.0-11.0) Red Blood Count 3.62 x10^6/uL (3.50-5.40) Hemoglobin 11.3 g/dL (12.0-15.5) Hematocrit 32.1 % (36.0-47.0) Mean Corpuscular Volume 89 fL (79-100) Mean Corpuscular Hemoglobin 31 pg (25-35) Mean Corpuscular Hemoglobin Concent 35 g/dL (31-37) Red Cell Distribution Width 12.7 % (11.5-14.5) Platelet Count 205 x10^3/uL (140-400) Neutrophils (%) (Auto) 74 % (31-73) Lymphocytes (%) (Auto) 19 % (24-48) Monocytes (%) (Auto) 7 % (0-9) Eosinophils (%) (Auto) 0 % (0-3) Basophils (%) (Auto) 0 % (0-3) Neutrophils # (Auto) 8.3 x10^3/uL (1.8-7.7) Lymphocytes # (Auto) 2.1 x10^3/uL (1.0-4.8) Monocytes # (Auto) 0.7 x10^3/uL (0.0-1.1) Eosinophils # (Auto) 0.0 x10^3/uL (0.0-0.7) Basophils # (Auto) 0.0 x10^3/uL (0.0-0.2) Laboratory Tests Test 05/14/20 09:24 White Blood Count 11.3 x10^3/uL (4.0-11.0) Red Blood Count 3.62 x10^6/uL (3.50-5.40) Hemoglobin 11.3 g/dL (12.0-15.5) Hematocrit 32.1 % (36.0-47.0) Mean Corpuscular Volume 89 fL (79-100) Mean Corpuscular Hemoglobin 31 pg (25-35) Mean Corpuscular Hemoglobin Concent 35 g/dL (31-37) Red Cell Distribution Width 12.7 % (11.5-14.5) Platelet Count 205 x10^3/uL (140-400) Neutrophils (%) (Auto) 74 % (31-73) Lymphocytes (%) (Auto) 19 % (24-48) Monocytes (%) (Auto) 7 % (0-9) Eosinophils (%) (Auto) 0 % (0-3) Basophils (%) (Auto) 0 % (0-3) Neutrophils # (Auto) 8.3 x10^3/uL (1.8-7.7) Lymphocytes # (Auto) 2.1 x10^3/uL (1.0-4.8) Monocytes # (Auto) 0.7 x10^3/uL (0.0-1.1) Eosinophils # (Auto) 0.0 x10^3/uL (0.0-0.7) Basophils # (Auto) 0.0 x10^3/uL (0.0-0.2) Brief Hospital Course Ms. Kahn is a 19 old female presented with acute appendicitis underwent laparoscopic appendectomy without any difficulties her postoperative course was quite uneventful she is able to tolerate a regular diet up and use the restroom and is feeling quite well. White count is 11.3 at time of discharge Assessment Assessment Status post laparoscopic appendectomy we will plan for Augmentin 500 mg p.o. 3 times daily for 7 days Follow-up Dr. Guthrie in 2 weeks Discharge Information Condition at Discharge: Improved Follow Up: Weeks (2) Disposition/Orders: D/C to Home Scheduled Info (No Known Medications Prior To Admisstion) Each, 1 EACH 1X for none, (Reported) Entered as Reported by: YARELY CHAVARRIA on 05/13/20518 Last Action: New Order on 05/13/20518 by YARELY CHAVARRIA Patient Instructions Patient Instructions No lifting more than 20 pounds for 2 weeks No dietary restrictions May shower starting today Follow-up Dr. Guthrie in 2 weeks Justicifation of Admission Dx: Justifications for Admission: Justification of Admission Dx: Yes SIDNEY GUTHRIE MD May 14, 2020 11:41
--- NOTE | 2020-05-14 14:55 | NUR ---
1315 Patient discharge teaching completed. IV site discontinued. Abdominal dressings changed and wound care taught to pt and her mother. Pt states that she understands her discharge teaching and home medications. Pt discharged to home via w/c with her mother. Escorted out by staff.
--- NOTE | 2020-05-16 18:06 | PATHOLOGY ---
[facility] Accession Number: [id number] . 01 Material submitted: . appendix - APPENDIX . 01 Clinical history: . None provided. . 02 Diagnosis: Appendix, laparoscopic appendectomy: - Acute appendicitis with focal serosal exudate. (JPM:[facility]; 05/16/2020) S 05/16/2020 1327 Local . 02 Comment: There is no evidence of rupture. (JPM:[facility] 05/16/2020) . 02 Electronically signed: . Olegario Najera MD, Pathologist NPI- [id number] . 01 Gross description: . Received in formalin labeled "Kahn, Yosary, appendix" is an appendix measuring 7.1 cm in length and 1.4 cm in diameter. There is an attached portion of mesoappendix measuring 4.1 x 1.8 x 1.3 cm. The serosa is perez-white and ragged with focal hemorrhage. The proximal margin is closed with a staple line. The specimen is sectioned to reveal no fecaliths or perforations and a luminal diameter of 0.6 cm. Beam Dyer sections are submitted in cassettes A1-A2, with the proximal margin inked black. ([facility]; 05/15/2020) SYC/SYC 05/15/2020 1004 Local . 02 Pathologist provided ICD-10: K35.80 . 02 CPT . 445184 Specimen Comment: A courtesy copy of this report has been sent to [phone] Specimen Comment: Report sent to Performed at: 01 [facility] [address], [place], [place] [id number] MD Morgan Magallon MD Phone: [phone] Performed at: 02 [facility] [address], [place] [id number] MD Olegario Najera MD Phone: [phone]
== END 2020-05-14 13:15 | disposition home or self-care (01) | DRG 343 ==
LOC: ER 23:58 → 4 NORTH 05-13 03:10
PROVIDERS: ADMIT Surgery; ATTEND Surgery
PROC: 0DTJ4ZZ Resection of Appendix, Percutaneous Endoscopic Approach (ICD-10-PCS; principal; 2020-05-13 12:30)
DX: K35.80 Unspecified acute appendicitis (principal); Z79.899 Other long term (current) drug therapy; Z20.828 Contact with and (suspected) exposure to other viral communicable diseases
CPT/HCPCS: 36415; 74176; 76856; 80053; 81001; 81025; 83605; 83690; 83735; 85007; 85025; 87426; 88304; 96361; 96374; 96375; J0330; J1100; J1885; J2250; J2405; J2543; J2704; J2710; J2765; J3010; J3490; J7030; J7120; 99291-25; G0378; U0003-CS

== ENCOUNTER 2020-12-11 00:58 | Emergency (ER) | payer SELFPAY ==
[~2020-12-11] VITALS: Ht 157.5 cm; Wt 64.5 kg
--- NOTE | 2020-12-11 01:58 | PHYS DOC ---
Past Medical History Past Medical History: No Pertinent History Past Surgical History: Appendectomy, Other Additional Past Surgical Histo: CYST REMOVED FROM LEFT EAR Smoking Status: Never Smoker Alcohol Use: Occasionally Drug Use: None General Adult EDM: Chief Complaint: VAGINAL BLEEDING HPI: HPI: Patient is a 20-year-old female who presents with vaginal bleeding. She has a history of a medically induced on December 01 using methotrexate. She has had mild vaginal bleeding since, but today developed heavy vaginal bleeding and passing large clots soaking through 8 pads along with suprapubic tenderness. She also complains of associated dizziness. She describes the pain as sharp and nonradiating. She has taken ibuprofen for the pain with no relief. She denies any fever or chills. Denies any personal history of bleeding disorders. She is not on any blood thinners. Review of Systems: Review of Systems: Constitutional: Denies fever or chills Eyes: Denies redness or eye pain HENT: Denies nasal congestion or sore throat Respiratory: Denies cough or shortness of breath Cardiovascular: Denies chest pain or palpitations GI: Denies abdominal pain, nausea, or vomiting : Dry admits vaginal bleeding felt and suprapubic pain, denies dysuria or hematuria Musculoskeletal: Denies back pain or joint pain Integument: Denies rash or skin lesions Neurologic: Admits dizziness, denies headache, focal weakness or sensory changes Complete systems were reviewed and found to be within normal limits, except as documented in this note. Allergies: Allergies: Allergies Coded Allergies Type Severity Reaction Last Updated Verified No Known Drug Allergies 05/13/20 No Physical Exam: PE: Constitutional: Well developed, well nourished, no acute distress, non-toxic appearance HENT: Normocephalic, atraumatic Eyes: PERRL, EOMI, conjunctiva normal, no discharge Neck: Normal range of motion, no tenderness, supple Lungs & Thorax: No respiratory distress, equal chest rise and fall Abdomen: Soft, suprapubic tenderness to palpation Skin: Warm, dry, no erythema, no rash Back: No tenderness, no CVA tenderness Extremities: No tenderness, ROM intact, no edema Neurologic: Alert and oriented X 3, normal motor function, normal sensory function, no focal deficits noted Psychologic: Affect normal, judgment normal Pelvic exam: Vehicle Monitor Technician Jayshree RN, moderate clot in vaginal vault, cervical os open, no cervical tenderness, mild imaging from cervical os, clot removed with suction. Current Patient Data: Vital Signs: Vital Signs Date Time Temp Pulse Resp B/P (MAP) Pulse Ox O2 Delivery O2 Flow Rate FiO2 12/11/20 01:00 98.6 112 18 109/72 (84) 97 Room Air 98.6 EKG: EKG: [] Radiology/Procedures: Radiology/Procedures: [] Course & Med Decision Making: Course & Med Decision Making Patient is a 20-year-old female who presents with vaginal bleeding 10 days after a medically induced . Plan to evaluate with labs to ensure hemoglobin is stable and a pelvic exam. Pertinent Labs and Imaging studies reviewed. (See chart for details) Patient stable for discharge with outpatient follow-up with PCP. Discussed findings and plan with patient, who acknowledges understanding and agreement. Dragon Disclaimer: Eagle Disclaimer: This electronic medical record was generated, in whole or in part, using a voice recognition dictation system. Departure Departure Impression: Primary Impression: Complication following medical Additional Impression: Vaginal bleeding, abnormal Disposition: 01 DC HOME SELF CARE/HOMELESS Condition: STABLE Referrals: NO PCP (PCP) NILSON COCHARN Jr, MD Patient Instructions: Abnormal Uterine Bleeding Additional Instructions: Your increased bleeding is secondary to your recent medical . Your cervix is open and while some bleeding was noted today, it appears to be controlled. Please follow with clinic and/or OB-MORTAR WORKER as needed. May also return to ED for any worsening of symptoms. A copy of current Ultrasound with your BHCG level has been provided to you to give to your doctor and/or clinic. Take over the counter Tylenol and/or Ibuprofen for pain or discomfort. SAMANTHA FAUSTIN DO Dec 11, 2020 01:58
[2020-12-11] MEDS ORDERED: IV NORMAL SALINE 1000ML BAG 1,000 ML IV ONE (02:00)
[2020-12-11 02:05] LABS: BASO % 0 % (0-3); EOS # 0.2 x10^3/uL (0.0-0.7); EOS % 1 % (0-3); HEMATOCRIT 34.9 % (36.0-47.0); HEMOGLOBIN 11.9 g/dL (12.0-15.5); LYMPH # 2.7 x10^3/uL (1.0-4.8); LYMPH % 26 % (24-48); MEAN CORPUSCULAR HEMOGLOBIN 30 pg (25-35); MEAN CORPUSCULAR HGB CONC 34 g/dL (31-37); MEAN CORPUSCULAR VOLUME 88 fL (79-100); MONO # 0.9 x10^3/uL (0.0-1.1); MONO % 9 % (0-9); NEUT # 6.7 x10^3/uL (1.8-7.7); NEUT % 63 % (31-73); PLATELET COUNT 263 x10^3/uL (140-400); RED BLOOD COUNT 3.99 x10^6/uL (3.50-5.40); RED CELL DISTRIBUTION WIDTH 12.9 % (11.5-14.5); WHITE BLOOD COUNT 10.5 x10^3/uL (4.0-11.0)
[2020-12-11 02:16] LABS: PROTHROMBIN TIME PATIENT 13.1 SEC (11.7-14.0)
[2020-12-11 02:18] LABS: CALCIUM 8.5 mg/dL (8.5-10.1); CREATININE 0.6 mg/dL (0.6-1.0); GFR 127.5; POTASSIUM 3.7 mmol/L (3.5-5.1)
[2020-12-11 02:25] LABS: ALBUMIN 3.3 g/dL (3.4-5.0); ALBUMIN/GLOBULIN RATIO 0.9 (1.0-1.7); MAGNESIUM 1.9 mg/dL (1.8-2.4); TOTAL BILIRUBIN 0.4 mg/dL (0.2-1.0)
--- NOTE | 2020-12-11 03:34 | RAD ---
Study: US OB TRANSVAGINAL DATE: 12/11/2020 2:50 AM INDICATION: Menometrorrahgia status post medical . Evaluate for retained products of concepti on. COMPARISON: 05/13/2020 TECHNIQUE: Transvaginal ultrasonography of the pelvis was performed. Color Doppler and duplex were ut ilized as appropriate. FINDINGS: The uterus measures 9.1 x 5.3 x 4.2 cm. Thickened and heterogeneous endometrium measured at 1.3 cm tr ansverse. Heterogeneous material along the cervix without significant internal hypervascularity. No g estational sac is identified which goes along with the provided history. The right ovary measures 3.3 x 2.3 x 2.3 cm and the left ovary 2.5 x 2.0 x 1.5 cm. Doppler flow is ma intained. No complex cyst or mass. No large volume free pelvic fluid. IMPRESSION: 1. Heterogeneous material centered along the cervical canal without overt internal vascularity. This could represent clotted blood or avascular retained products of conception. 2. Thickened and somewhat heterogeneous endometrium but not unexpected given provided history of med ical portion. 3. Unremarkable ovaries Electronically signed by: HUGO PERSAUD MD (12/11/2020 3:32 AM) [facility]
[2020-12-11 04:05] VITALS: BP 110/56
== END 2020-12-11 04:07 | disposition home or self-care (01) ==
LOC: ER 00:58
DX: N93.9 Abnormal uterine and vaginal bleeding, unspecified (principal); R42 Dizziness and giddiness; R10.2 Pelvic and perineal pain; Z90.89 Acquired absence of other organs; Z98.890 Other specified postprocedural states
CPT/HCPCS: 36415; 76817; 80053; 83735; 84702; 85025; 85610; 85730; 96360; 99285; J7030